=== PATIENT | female | born 1945 | race Caucasian/White ===

== ENCOUNTER 2022-11-09 08:57 | Observation (INO) ==
[2022-11-01 14:02] LABS: Basophils # (Auto) 0.03 K/mcL (0.00-0.30); Basophils % (Auto) 0.6 % (0.0-2.0); Eosinophils # (Auto) 0.12 K/mcL (0.00-0.70); Eosinophils % (Auto) 2.5 % (0.0-7.0); Hematocrit 39.9 % (34.1-44.9); Hemoglobin 12.6 g/dL (11.2-15.7); Lymphocytes % (Auto) 26.6 % (15.5-49.0); Mean Cell Volume 92.1 fL (80.0-100.0); Mean Corpuscular HGB Conc 31.6 g/dL (31.0-36.0); Mean Platelet Volume 11.5 fL (8.8-12.5); Monocytes # (Auto) 0.34 K/mcL (0.10-0.90); Neutrophils % (Auto) 62.9 % (38.0-78.0); Platelet Count 223 K/mcL (140-440); RBC 4.33 M/mcL (3.59-5.38); Red Cell Distribution Width 14.6 % (11.5-14.5); WBC 4.9 K/mcL (4.5-11.0)
[2022-11-01 14:16] LABS: Blood Urea Nitrogen 20 mg/dL (8-23); Calcium 9.8 mg/dL (8.6-10.4); Carbon Dioxide 24 mmol/L (22-30); Chloride 103 mmol/L (96-108); Glomerular Filtration Rate 84; Glucose 87 mg/dL (70-105)
--- NOTE | 2022-11-05 07:09 | EKG ---
[facility] Test Date: 2022-11-01 Pat Name: Maisha Mitchell Department: [facility] Room: Gender: Female [employer]: : [id number] Requested By: Wei Blackmon Order Number: [id number] Reading MD: Antony Calvert M.D. Measurements Intervals Cutler Rate: 64 P: 44 MD: 166 QRS: 58 QRSD: 93 T: 49 QT: 460 QTc: 473 Interpretive Statements Sinus rhythm Electronically Signed On 11-05-2022 7:09:50 PDT by Antony Calvert M.D. /[email or web address]/[id number]
[~2022-11-09 08:57] MED LIST: 0.9 % SODIUM CHLORIDE 9 ML, KETOROLAC 30 MG, ROPIVACAINE HCL/PF 49.5 ML, EPINEPHrine 0.... IJ SCH; ACETAMINOPHEN 500 MG TABLET PO SCH; CELECOXIB 200 MG CAPSULE PO SCH; PREGABALIN 75 MG CAPSULE PO SCH; ceFAZolin 2 GM in DEXTROSE 5% IN WATER 50 ML IV SCH; oxyCODONE 10 MG TAB.ER.12H PO SCH
[2022-11-09 10:31] LABS: Appearance,Urine CLEAR (Clear); Bilirubin,Urine Negative (Negative); Color,Urine YELLOW; Culture Indicated,Urine No; Glucose,Urine (UA) Negative (Negative); Ketones,Urine Negative (Negative); Leukocyte Esterase,Urine Negative /uL (Negative); Nitrate,Urine Negative (Negative); Protein,Urine Negative (Negative); Specific Gravity,Urine 1.011 (1.000-1.035); Urine Blood Negative (Negative); Urobilinogen,Urine Negative
[2022-11-09] MEDS ORDERED: KETAMINE 50 MG/ML Syringe (ANEST) IV ONE (11:22)
[2022-11-09] MEDS ORDERED: LIDOCAINE HCL/PF 100 MG/5 ML SYRINGE IV ONE (11:22)
[2022-11-09] MEDS ORDERED: DEXAMETHASONE 10 MG/ML VIAL ONE (11:22)
[2022-11-09] MEDS ORDERED: PHENYLephrine 1 MG/10 ML SYRINGE (ANEST) ONE (11:22)
[2022-11-09] MEDS ORDERED: ROPIVACAINE HCL/PF 30 ML VIAL IJ ONE (11:22)
[2022-11-09] MEDS ORDERED: PROPOFOL 200 MG/20 ML VIAL IV ONE (11:22)
[2022-11-09] MEDS ORDERED: MAGNESIUM SULFATE 2 GM/50 ML BAG IV ONE (11:22)
[2022-11-09] MEDS ORDERED: ePHEDrine 50 MG/5 ML SYRINGE (ANEST) IV ONE (11:22)
[2022-11-09] MEDS ORDERED: TRANEXAMIC ACID 1,000 MG/10 ML VIAL ONE (11:22)
[2022-11-09] MEDS ORDERED: ONDANSETRON 4 MG/2 ML VIAL ONE (11:22)
[2022-11-09] MEDS ORDERED: GLYCOPYRROLATE 0.2 MG/ML VIAL IV ONE (11:22)
[2022-11-09] MEDS ORDERED: TRANEXAMIC ACID 1,000 MG/10 ML VIAL IV SCH (12:38)
[2022-11-09] MEDS ORDERED: FLEETS ADULT ENEMA PR PRN (12:38)
[2022-11-09] MEDS ORDERED: BENZOCAINE/MENTHOL 1 LOZENGE PO PRN (12:38)
[2022-11-09] MEDS ORDERED: POLYETHYLENE GLYCOL 3350 17 GM PACKET PO PRN (12:38)
[2022-11-09] MEDS ORDERED: BISACODYL 10 MG SUPP.RECT PR PRN (12:38)
[2022-11-09] MEDS ORDERED: HYDROcodone/APAP 10/325MG TABLET PO PRN (12:38)
[2022-11-09] MEDS ORDERED: MAGNESIUM HYDROXIDE 30 ML ORAL.SUSP PO PRN (12:38)
[2022-11-09] MEDS ORDERED: ACETAMINOPHEN 325 MG TABLET PO PRN (12:38)
--- NOTE | 2022-11-09 12:39 | Brief Operative Note ---
Brief Operative Note Date of procedure: 11/09/22 Pre-op diagnosis: Right knee djd Post-op diagnosis: same Procedure: Right javier tka Grafts/Implants: Yes Anesthesia: GETA Findings: severe djd Complications: none Surgeon: Ranjit Barry Careers Adviser: Andrea Rodriguez Estimated blood loss (cc): 40 Tourniquet Time (Minutes): 40 Specimens Removed/Pathology: none sent Condition: stable Disposition: PACU
--- NOTE | 2022-11-09 12:49 | Discharge Plan ---
Discharge Instructions - TKA Patient Instructions Total Knee Protocol: For Total Knee: Start ROM PHOEBE with stationary bike or rocking chair. Work on gaining full extension of knee. Posterior dislocation precautions provided. Hip abductor strengthening and gait training instructions provided. Apply Cryocuff as instructed. Additional Dressing Instructions: Leave Zip line closure patch intact until followup --May shower at anytime. Discharge Plan Patient/Caregiver Discharge Instructions Activity: ambulate only with your walker and as per physical therapy Diet: Regular Diet Instructions: Aspirin (By mouth), Laxative, Stool Softeners (By mouth), Oxycodone, Rapid Release (By mouth), Knee Replacement (DC) Activity Restrictions/Additional Instructions: Resume home diet as tolerated. Do the exercises at home that physical therapy gave you. Start ROM PHOEBE with stationary bike or rocking chair. Work on gaining full extension of knee. Weight bearing as tolerated operative side. Activity as tolerated. Use your ice packs as tolerated throughout the day. The icing of your knee, use of ROSEANNA wrap, and elevation will help with pain and swelling. You are scheduled to start Physical Therapy with [facility] on Tuesday 11/14 at 3:30pm. Take your photo ID, insurance cards, and current medication list with you to your first physical therapy appointment. Wear comfortable clothing for your physical therapy. Consider pre-medicating with pain medication 30 minutes prior to physical therapy appointment. Do not drive while on pain medication. You have the Zipline dressing, (a waterproof dressing) covering your incision. DO NOT remove Zipline. Leave dressing in place until seen by physician. You may shower. Do not scrub dressing. Do not use soaps, creams, or lotions over the dressing. Pat dry. No bathing or soaking in hot tub until released by surgeon. Change gauze daily and secure with ROSEANNA wrap. Your medications were electronically transmitted to [facility]. Take your prescription, photo ID, and insurance cards to crab picker your medications or eqipment. You will be taking aspirin 81 mg 2x daily for 1 month to prevent blood clots. To avoid constipation while taking any narcotic pain medication, take an over the counter stool softener/laxative. Please crab picker CPM from [facility] (within 24 hours of discharge) Instructions for use: Start CPM at 40 degrees flexion and advance as tolerated to 90 degrees flexion. Use Daily as tolerated. If you have any questions or concerns call your orthopedic surgeon before going to the emergency room. [facility] has an on-call physician 24 hours per day/7 days per week and can be reached at [phone]. Call for fevers above 100.5 or pain not controlled by medication. This discharge packet is provided to you to help keep you informed about your care. We want to ensure you get everything you need when you go home. You will also be receiving a call from us in a few days to follow up with you and see how you are doing since your discharge. This gives us a chance to listen to any concerns you maybe experiencing since you were discharged or any additional needs you may have, as well as providing us feedback on your care experience. We strive to always provide excellent care and thank you for your feedback and for choosing [facility]. Prescriptions: New docusate sodium 100 mg capsule 100 mg PO BID Qty: 60 0RF aspirin [Ecotrin Low Strength] 81 mg tablet,delayed release (DR/EC) 81 mg PO BID Qty: 60 0RF oxycodone 5 mg capsule 5 mg PO Q4H PRN (Reason: pain) Qty: 60 0RF No Action (DME) cane 1 EACH device 1 ea MC 5XD Qty: 1 0RF cyanocobalamin (vitamin B-12) [Vitamin B-12] 500 mcg Tablet 500 mcg PO QDAY flecainide 50 mg Tablet 50 mg PO BID Premarin 0.625 mg Tablet 0.625 mg PO Q48@0900 metoprolol succinate 25 mg Tablet Extended Release 24 Hr 12.5 mg PO QDAY oxycodone 5 mg Tablet 5 mg PO BIDP PRN (Reason: Pain) cholecalciferol (vitamin D3) [Vitamin D3] 25 mcg (1,000 unit) Tablet 25 mcg PO QDAY magnesium oxide 400 mg magnesium Tablet 400 mg PO QDAY Other Ambulatory Orders: CPM Discharge Order (ONCE) Location: None Selected Ordered By: Andrea Rodriguez Physical Therapy DC - TKA (Routine) Location: None Selected Ordered By: Andrea Rodriguez Toilet Riser Discharge Order (ONCE) Location: None Selected Ordered By: Andrea Rodriguez Walker (ONCE) Location: None Selected Ordered By: Andrea Rodriguez Prescription drug monitoring program results: PDMP reviewed and no issues identified Follow Up Plan Follow up with: Andrea Rodriguez PA-C [Physician Plumbing Assembler Installer] - 11/20/22 10:20 am Patient Disposition: Home, Self-Care Prognosis: Good Rehab Potential: Good I certify that the patient requires SNF services: Yes Overall status at discharge: patient is not back to baseline Discharge Orders: Discharge Order (Routine); Ordered 11/12/22 Ordered By: Andrea Rodriguez Discharge Comment: WC to vehicle with sig other
[2022-11-09] MEDS ORDERED: oxyCODONE IR 5 MG TABLET PO PRN (13:44)
--- NOTE | 2022-11-09 13:53 | XRay Report ---
INDICATION: Post-Op Total Knee TECHNIQUE: AP and crosstable lateral COMPARISON: Preoperative evaluation dated 07/09/2022 FINDINGS:Status post right total knee arthroplasty. Normal anatomic alignment. There is soft tissue and intra-articular gas IMPRESSION: Status post right total knee arthroplasty Interpreted and Authenticated by: Antony Bates 11/09/22
--- NOTE | 2022-11-09 14:30 | Operative Note ---
DATE OF OPERATION: 11/09/2022 DATE OF PROCEDURE: 11/09/2022 PREOPERATIVE DIAGNOSIS: Right knee degenerative arthritis with 1 degree of valgus, severe patellofemoral wear. POSTOPERATIVE DIAGNOSIS: Right knee degenerative arthritis with 1 degree of valgus, severe patellofemoral wear. PROCEDURE: Right total knee arthroplasty using the Anatoliy robot. Posterior corner release as well as an IT band release to balance the knee using the VeraSense. SURGEON: Ranjit Barry M.D. ASSOCIATE MERCHANDISE PLANNER: Andrea Rodriguez PA-C. This providers expertise and technical skill were required throughout the case. The JODIE assisted with preoperative coordination, intraoperative retraction, wound closure, and dressing and splint application, as well as postoperative documentation and care coordination. ANESTHESIA: General LMA anesthesia. COMPLICATIONS: None. TOURNIQUET TIME: 40 minutes. ESTIMATED BLOOD LOSS: About 50 mL. DISPOSITION: PACU. IMPLANT: Burtrum cementless total knee with tibial baseplate and an 11 mm deep dish poly with a 32 mm oval cementless patella, size 4 femur, size 4 tibia. DESCRIPTION OF PROCEDURE: The patient was brought to the operating room, put to sleep with general LMA anesthesia. Once asleep, the patient had the right leg sterilely prepped and draped in the usual sterile fashion. The patient was in about 1 degree of valgus to start with and had about 3 degrees of flexion. Once this was registered, we then noted severe patellofemoral wear. After we performed a midline incision, a midvastus approach was performed. Once we exposed the joint, this showed severe wear throughout the knee and we proceeded with the total knee arthroplasty placing 2 pins in the femur, 2 pins in the tibia. Arrays were attached and we registered the center of hip rotation. We placed checkpoints and registered the checkpoints, registered medial and lateral malleoli with the robot and then registered 30 points on the femur and tibia. Once done, we were able to then bring in the robot and make the bony cuts of the femur and the tibia. We placed a size 4 tibial baseplate setting external rotation to be anatomic. We placed the femur centrally and then we trialed the size 9 and 11 poly. The 11 seemed to be the most appropriate, though it was tight laterally with extension. We performed a posterior corner release, which helped the tension in flexion, more so than in extension. I then released the IT band, which then equaled the pressures in flexion, extension in the lateral compartment. She gained a -3 degrees extension. We then deflated the tourniquet after implanting the final implant. Size 4 tibial baseplate was punched into place, a size 4 femur cementless, 9 mm deep dish poly and the 32 mm oval patella. The patella did measure a total thickness of 20 because of the severe wear. We then cut to 14 and placed a 32 mm oval cementless patella. All these components were placed. We took the knee through range of motion. The patella tracked well. We deflated the tourniquet at 40 minutes. We closed the midvastus approach with #1 Stratafix x2. The skin was closed with Stratafix and adhesive closure. I did release the IT band through the incision, taking great care to isolate the medial and lateral aspects of the tendon. This gained near full motion. She tolerated this well. We irrigated thoroughly and closed the skin after closing the midvastus approach with Stratafix. The skin was closed with Stratafix, 2-0 Vicryl and adhesive closure. The patient tolerated this well without complication. RBH:stefani Job ID: [id number] Doc ID: [id number] Ranjit Barry MD
[2022-11-09] MEDS: 0.45 % SODIUM CHLORIDE 1,000 ML IV SCH ×2 (15:25→21:24)
[2022-11-09] MEDS: 0.9 % SODIUM CHLORIDE 10 ML SYRINGE IV SCH ×3 (15:26→21:24)
[2022-11-09] MEDS: ceFAZolin 1 GM VIAL IV SCH (19:32)
[2022-11-09] MEDS: MUPIROCIN OINT 2% 22GM NARES SCH (20:07)
[2022-11-09] MEDS: FLECAINIDE 50 MG TABLET PO SCH (20:07)
[2022-11-09] MEDS: ASPIRIN 81 MG TAB.CHEW PO SCH (20:08)
[2022-11-09] MEDS: SENNOSIDES 1 TABLET PO SCH (20:08)
[2022-11-09] MEDS: DOCUSATE SODIUM 100 MG CAPSULE PO SCH (20:08)
[2022-11-09] MEDS: ESTROGENS, CONJUGATED 0.625 MG TABLET PO SCH (20:25)
[2022-11-09] MEDS ORDERED: TEMAZEPAM 15 MG CAPSULE PO PRN (21:00)
[2022-11-09] MEDS ORDERED: METOPROLOL SUCCINATE 25 MG TAB.XL.24H PO SCH (21:00)
[2022-11-10] MEDS: ceFAZolin 1 GM VIAL IV SCH (03:01)
[2022-11-10] MEDS: 0.9 % SODIUM CHLORIDE 10 ML SYRINGE IV SCH ×4 (03:01→23:32)
--- NOTE | 2022-11-10 07:17 | Orthopedic Progress Note ---
SUBJECTIVE Subjective Patient information: Note initiated : 11/10/22 at 7:11 am Service Date, if different from initiated Date: [] Patient: Maisha Mitchell 76 y/o F admitted on for Right HOWIE Total Knee Arthroplasty. Chief Complaint: [Eating well and minimal pain] Principal diagnosis: right tka Constitutional Vitals: Vital Signs Temp Pulse Resp BP Pulse Ox O2 Del Method 97 F 72 17 98/55 98 Room Air 11/10/22 03:28 11/10/22 03:28 11/10/22 03:28 11/10/22 03:28 11/10/22 03:28 11/10/22 03:28 Period Temp Pulse Resp BP Sys/Marino Pulse Ox O2 Del Method O2 Flow Rate Last 24 Hr 97 F-98.7 F 54-99 12-64 89-126/50-67 93-99 Room Air-Room Air Intake and Output 11/09/22 11/10/22 11/10/22 19:59 03:59 11:59 Intake Total 1940 1600 1000 Output Total 625 1200 Balance 1681 687 9849 Intake & Output: Intake & Output 11/09/22 11/10/22 11/10/22 19:59 03:59 11:59 Intake Total 1940 1600 1000 Output Total 625 1200 Balance 5957 027 5646 Intake: IV 1000 Sodium Chloride 0.45% 1,000 ml 1000 @ 100 mls/hr IV .Q10H [facility] Rx#: [id number] Oral 240 1600 IV - Manual Only 1700 Output: Urine Catheter Amount 625 Void Amount 1200 Other: Percent of Meal Consumed 100% Urine Appearance Clear Clear Urine Color Yellow Yellow Urine Odor Normal Normal General appearance: thin Expanded Lower Extremity Exam Gait: Present unable to bear weight Neurological Exam Neurological exam: Present alert OBJ DATA Labs 11/01/22 11:24 11/01/22 11:24 Meds: Medications Aspirin (Aspirin 81 Mg Tab.Chew) 81 mg PO BID [facility] Last Admin: 11/09/22 20:08 Dose: 81 mg Bisacodyl (Bisacodyl 10 Mg Supp.Rect) 10 mg MA Q2-3DAYS PRN PRN Reason: Constipation Cyanocobalamin (Cyanocobalamin (Vitamin B-12) 500 Mcg Tablet) 500 mcg PO QDAY [facility] Docusate Sodium (Docusate Sodium 100 Mg Capsule) 100 mg PO BID [facility] Last Admin: 11/09/22 20:08 Dose: 100 mg Estrogens Conjugated (Estrogens, Conjugated 0.625 Mg Tablet) 0.625 mg PO Q48H [facility] Last Admin: 11/09/22 20:25 Dose: Not Given Flecainide Acetate (Flecainide 50 Mg Tablet) 50 mg PO BID [facility] Last Admin: 11/09/22 20:07 Dose: 50 mg Hydromorphone HCl (Hydromorphone 1 Mg/Ml Syringe) 0.5 - 2 mg IV Q2HP PRN; Protocol PRN Reason: Per Pain Protocol Sodium Chloride (Sodium Chloride 0.45%) 1,000 mls @ 100 mls/hr IV .Q10H [facility] Last Infusion: 11/10/22 05:41 Dose: Infused Magnesium Hydroxide (Magnesium Hydroxide 30 Ml Oral.Susp) 30 ml PO BIDP PRN PRN Reason: Constipation Magnesium Oxide (Magnesium Oxide 400 Mg Tablet) 400 mg PO DAILY [facility] Metoprolol Succinate (Metoprolol Succinate 25 Mg Tab.Xl.24h) 12.5 mg PO [facility] Last Admin: 11/09/22 20:26 Dose: 12.5 mg Mupirocin (Mupirocin Oint 2% 22gm) 1 dose NARES BID [facility] Last Admin: 11/09/22 20:07 Dose: 1 dose Ondansetron HCl (Ondansetron 4 Mg/2 Ml Vial) 4 mg IV Q4HP PRN PRN Reason: Nausea And Vomiting Oxycodone HCl (Oxycodone Ir 5 Mg Tablet) 5 - 10 mg PO Q4-6HP PRN; Protocol PRN Reason: Per Pain Protocol Polyethylene Glycol (Polyethylene Glycol 3350 17 Gm Packet) 17 gm PO DAILYP PRN PRN Reason: Constipation Senna (Sennosides 1 Tablet) 2 tab PO HS [facility] Last Admin: 11/09/22 20:08 Dose: 2 tab Sodium Biphosphate/Sodium Phosphate (Fleets Adult Enema) 1 dose MA Q3-4DAYS PRN PRN Reason: Constipation Sodium Chloride (0.9 % Sodium Chloride 10 Ml Syringe) 10 ml IV Q8 [facility] Last Admin: 11/10/22 05:42 Dose: Not Given Temazepam (Temazepam 15 Mg Capsule) 15 mg PO HSP PRN PRN Reason: Insomnia Throat Lozenges (Benzocaine/Menthol 1 Lozenge) 1 lozenge PO PRN PRN PRN Reason: Sore Throat Vitamin D (Vitamin D3 25 Mcg Tablet) 25 mcg PO QDAY JOSHUA A/P Assessment and plan (1) Total knee replacement status: Plan: dc Home tomorrow if able to ambulate 100 feet Status: Acute Time Spent With Patient Time: Total time spent is greater than 50% in coordination of care (as documented) at patient's floor/unit and/or counseling patient: Subsequent: Total time with patient: Less than 25 minutes
[2022-11-10] MEDS: oxyCODONE IR 5 MG TABLET PO PRN ×4 (08:02→21:01)
[2022-11-10] MEDS: DOCUSATE SODIUM 100 MG CAPSULE PO SCH ×2 (09:12→20:19)
[2022-11-10] MEDS: VITAMIN D3 25 MCG TABLET PO SCH (09:12)
[2022-11-10] MEDS: ASPIRIN 81 MG TAB.CHEW PO SCH ×2 (09:12→20:19)
[2022-11-10] MEDS: MAGNESIUM OXIDE 400 MG TABLET PO SCH (09:14)
[2022-11-10] MEDS: CYANOCOBALAMIN (VITAMIN B-12) 500 MCG TABLET PO SCH (09:18)
[2022-11-10] MEDS: FLECAINIDE 50 MG TABLET PO SCH ×2 (09:19→20:21)
[2022-11-10] MEDS: 0.45 % SODIUM CHLORIDE 1,000 ML IV SCH ×2 (10:04→23:44)
[2022-11-10] MEDS: MUPIROCIN OINT 2% 22GM NARES SCH ×2 (10:04→20:20)
[2022-11-10] MEDS: HYDROmorphone 1 MG/ML SYRINGE IV PRN ×2 (13:14→23:31)
[2022-11-10] MEDS: SENNOSIDES 1 TABLET PO SCH (20:19)
[2022-11-10] MEDS: METOPROLOL SUCCINATE 25 MG TAB.XL.24H PO SCH (20:21)
[2022-11-10] MEDS ORDERED: FLECAINIDE 50 MG TABLET PO SCH (21:00)
[2022-11-10] MEDS: ONDANSETRON 4 MG/2 ML VIAL IV PRN (23:31)
[2022-11-11] MEDS: oxyCODONE IR 5 MG TABLET PO PRN ×4 (03:11→19:33)
[2022-11-11] MEDS: 0.9 % SODIUM CHLORIDE 10 ML SYRINGE IV SCH ×2 (04:07→14:55)
[2022-11-11] MEDS: ONDANSETRON 4 MG/2 ML VIAL IV PRN (04:07)
[2022-11-11] MEDS: HYDROmorphone 1 MG/ML SYRINGE IV PRN (05:53)
[2022-11-11] MEDS: MAGNESIUM OXIDE 400 MG TABLET PO SCH (09:35)
[2022-11-11] MEDS: VITAMIN D3 25 MCG TABLET PO SCH (09:35)
[2022-11-11] MEDS: CYANOCOBALAMIN (VITAMIN B-12) 500 MCG TABLET PO SCH (09:35)
[2022-11-11] MEDS: DOCUSATE SODIUM 100 MG CAPSULE PO SCH ×2 (09:35→21:54)
[2022-11-11] MEDS: ASPIRIN 81 MG TAB.CHEW PO SCH ×2 (09:35→21:54)
[2022-11-11] MEDS: FLECAINIDE 50 MG TABLET PO SCH ×2 (09:36→21:53)
[2022-11-11] MEDS: MUPIROCIN OINT 2% 22GM NARES SCH ×2 (09:37→21:53)
[2022-11-11] MEDS: 0.45 % SODIUM CHLORIDE 1,000 ML IV SCH ×2 (09:46→14:55)
--- NOTE | 2022-11-11 10:43 | Orthopedic Progress Note ---
SUBJECTIVE Subjective Patient information: Note initiated : 11/11/22 at 10:37 am Service Date, if different from initiated Date: [] Patient: Maisha Mitchell 76 y/o F admitted on for Right HOWIE Total Knee Arthroplasty. Chief Complaint: Very weak in upper extremity and pain in both legs[] Principal diagnosis: right tka Interval history: only walking a few feet Constitutional Vitals: Vital Signs Temp Pulse Resp BP Pulse Ox O2 Del Method 98.6 F 82 16 106/50 95 Room Air 11/11/22 07:00 11/11/22 07:00 11/11/22 07:00 11/11/22 07:00 11/11/22 07:00 11/11/22 07:00 Period Temp Pulse Resp BP Sys/Marino Pulse Ox O2 Del Method O2 Flow Rate Last 24 Hr 97.5 F-98.8 F 68-83 16-18 83-124/46-63 95-97 Room Air-Room Air Intake and Output 11/10/22 11/11/22 11/11/22 19:59 03:59 11:59 Intake Total 1360 1800 Output Total 587 690 0478 Balance 800 -800 200 Intake & Output: Intake & Output 11/10/22 11/11/22 11/11/22 19:59 03:59 11:59 Intake Total 1360 1800 Output Total 290 676 6296 Balance 800 -800 200 Intake: IV 1000 Sodium Chloride 0.45% 1,000 ml 1000 @ 100 mls/hr IV .Q10H [facility] Rx#: [id number] Oral 880 800 GI Tube Flush 480 Output: Void Amount 210 379 3526 Other: Meal Lunch Percent of Meal Consumed 100% Feeding Ability Independent Urine Appearance Clear Clear Clear Urine Color Yellow Yellow Yellow Urine Odor Normal Normal Normal # Unmeasured Emesis 1 General appearance: cooperative, no acute distress and thin Expanded Lower Extremity Exam Hip exam: Present swelling Foot/Toe exam: Present swelling OBJ DATA Labs 11/01/22 11:24 11/01/22 11:24 Meds: Medications Aspirin (Aspirin 81 Mg Tab.Chew) 81 mg PO BID [facility] Last Admin: 11/11/22 09:35 Dose: 81 mg Bisacodyl (Bisacodyl 10 Mg Supp.Rect) 10 mg VA Q2-3DAYS PRN PRN Reason: Constipation Cyanocobalamin (Cyanocobalamin (Vitamin B-12) 500 Mcg Tablet) 500 mcg PO QDAY [facility] Last Admin: 11/11/22 09:35 Dose: 500 mcg Docusate Sodium (Docusate Sodium 100 Mg Capsule) 100 mg PO BID [facility] Last Admin: 11/11/22 09:35 Dose: 100 mg Estrogens Conjugated (Estrogens, Conjugated 0.625 Mg Tablet) 0.625 mg PO Q48H [facility] Last Admin: 11/09/22 20:25 Dose: Not Given Flecainide Acetate (Flecainide 50 Mg Tablet) 50 mg PO Q12 [facility] Last Admin: 11/11/22 09:36 Dose: 50 mg Hydromorphone HCl (Hydromorphone 1 Mg/Ml Syringe) 0.5 - 2 mg IV Q2HP PRN; Protocol PRN Reason: Per Pain Protocol Last Admin: 11/11/22 05:53 Dose: 1 mg Sodium Chloride (Sodium Chloride 0.45%) 1,000 mls @ 100 mls/hr IV .Q10H [facility] Last Infusion: 11/11/22 09:46 Dose: Infused Magnesium Hydroxide (Magnesium Hydroxide 30 Ml Oral.Susp) 30 ml PO BIDP PRN PRN Reason: Constipation Magnesium Oxide (Magnesium Oxide 400 Mg Tablet) 400 mg PO DAILY [facility] Last Admin: 11/11/22 09:35 Dose: 400 mg Metoprolol Succinate (Metoprolol Succinate 25 Mg Tab.Xl.24h) 12.5 mg PO [facility] Last Admin: 11/10/22 20:21 Dose: Not Given Mupirocin (Mupirocin Oint 2% 22gm) 1 dose NARES BID [facility] Last Admin: 11/11/22 09:37 Dose: 1 dose Ondansetron HCl (Ondansetron 4 Mg/2 Ml Vial) 4 mg IV Q4HP PRN PRN Reason: Nausea And Vomiting Last Admin: 11/11/22 04:07 Dose: 4 mg Oxycodone HCl (Oxycodone Ir 5 Mg Tablet) 5 - 10 mg PO Q4-6HP PRN; Protocol PRN Reason: Per Pain Protocol Last Admin: 11/11/22 08:45 Dose: 10 mg Polyethylene Glycol (Polyethylene Glycol 3350 17 Gm Packet) 17 gm PO DAILYP PRN PRN Reason: Constipation Senna (Sennosides 1 Tablet) 2 tab PO [facility] Last Admin: 11/10/22 20:19 Dose: 2 tab Sodium Biphosphate/Sodium Phosphate (Fleets Adult Enema) 1 dose VA Q3-4DAYS PRN PRN Reason: Constipation Sodium Chloride (0.9 % Sodium Chloride 10 Ml Syringe) 10 ml IV Q8 [facility] Last Admin: 11/11/22 04:07 Dose: 10 ml Temazepam (Temazepam 15 Mg Capsule) 15 mg PO HSP PRN PRN Reason: Insomnia Throat Lozenges (Benzocaine/Menthol 1 Lozenge) 1 lozenge PO PRN PRN PRN Reason: Sore Throat Vitamin D (Vitamin D3 25 Mcg Tablet) 25 mcg PO QDAY [facility] Last Admin: 11/11/22 09:35 Dose: 25 mcg A/P Assessment and plan (1) Total knee replacement status: Status: Acute Plan Plan to d/c in AM to SNF as she is unable to ambulate more than a few feet and this is because she is weak in her arms and pain in both knees and this will take a few days to resolve. Sepsis Sepsis Identified: No Time Spent With Patient Time: Total time spent is greater than 50% in coordination of care (as documented) at patient's floor/unit and/or counseling patient: Subsequent: Total time with patient: Less than 25 minutes
[2022-11-11] MEDS ORDERED: ONDANSETRON 4 MG ODT TABLET SL PRN (14:13)
[2022-11-11] MEDS: IBUPROFEN 200 MG TABLET PO PRN ×2 (14:25→23:12)
[2022-11-11] MEDS: METOPROLOL SUCCINATE 25 MG TAB.XL.24H PO SCH (21:54)
[2022-11-11] MEDS: SENNOSIDES 1 TABLET PO SCH (21:54)
[2022-11-11] MEDS: ESTROGENS, CONJUGATED 0.625 MG TABLET PO SCH (21:54)
[2022-11-12] MEDS: 0.9 % SODIUM CHLORIDE 10 ML SYRINGE IV SCH ×3 (01:29→14:08)
[2022-11-12] MEDS: 0.45 % SODIUM CHLORIDE 1,000 ML IV SCH (01:30)
[2022-11-12] MEDS: oxyCODONE IR 5 MG TABLET PO PRN ×3 (04:06→14:05)
[2022-11-12] MEDS: IBUPROFEN 200 MG TABLET PO PRN (08:50)
[2022-11-12] MEDS: ASPIRIN 81 MG TAB.CHEW PO SCH (08:52)
[2022-11-12] MEDS: DOCUSATE SODIUM 100 MG CAPSULE PO SCH (08:52)
[2022-11-12] MEDS: VITAMIN D3 25 MCG TABLET PO SCH (08:52)
[2022-11-12] MEDS: CYANOCOBALAMIN (VITAMIN B-12) 500 MCG TABLET PO SCH (08:53)
[2022-11-12] MEDS: MAGNESIUM OXIDE 400 MG TABLET PO SCH (08:54)
[2022-11-12] MEDS: MUPIROCIN OINT 2% 22GM NARES SCH (08:57)
[2022-11-12] MEDS: FLECAINIDE 50 MG TABLET PO SCH (08:58)
== END 2022-11-12 14:45 | disposition home or self-care (01) ==
LOC: MEDSUR 08:57 → SUR 08:57 → MEDSUR 13:56 → SUR 14:35 → MEDSUR 14:45
PROVIDERS: ADMIT Orthopaedic Surgery; ATTEND Orthopaedic Surgery